=== PATIENT | female | born 1955 | race Caucasian/White ===

== ENCOUNTER 2023-09-16 20:43 | Observation (INO) ==
[2023-09-16 21:38] LABS: ABS Basophils 0.1 10^3/uL (0.0-0.1); ABS Eosinophils 0.8 10^3/uL (0.0-0.5); ABS Lymphocytes 2.2 10^3/uL (1.0-4.8); ABS Neutrophils 5.7 10^3/uL (1.5-7.6); Eosinophil % 8.3 %; Hematocrit 40.3 % (35-45); Hemoglobin 13.4 g/dL (11.5-14.3); Lymphocyte % 22.3 %; Mean Corpuscular Hemoglobin 28.9 pg (27-33); Mean Corpuscular Hgb Conc 33.2 g/dL (31-36); Mean Corpuscular Volume 86.8 fL (80-97); Mean Platelet Volume 8.7 fL (7.5-11.2); Platelet Count 258 10^3/uL (150-450); Red Blood Count 4.64 10^6/uL (3.63-4.92); Red Cell Distribution Width 14.6 % (12-17); White Blood Count 9.8 10^3/uL (3.8-11.8)
[2023-09-16 21:42] LABS: INR 0.97 (0.83-1.13)
[2023-09-16] MEDS: NS 0.9% 1000 ml BAG 1,000 ML IV ONE (22:37)
[2023-09-16 22:41] LABS: Albumin 3.6 g/dL (3.2-5.2); Albumin/Globulin Ratio 1.3 (1-3); Calcium 9.5 mg/dL (8.6-10.3); Creatinine, Serum 1.22 mg/dL (0.51-0.95); Globulin 2.7 g/dL (2-4); Potassium 4.4 mmol/L (3.5-5.0); Total Bilirubin 0.5 mg/dL (0.2-1.0); Total Protein 6.3 g/dL (6.4-8.9); eGFR CKD-EPI 47.7 (>60)
[2023-09-16 23:07] LABS: High Sensitivity Troponin 1 Hr 4 pg/mL (<15)
[2023-09-17] MEDS: Iohexol 350 (CONTRAST) 500 ML MDV IV ONE (00:43)
[2023-09-17 03:33] LABS: HDL Cholesterol 53.1 mg/dL
[2023-09-17] MEDS: Enoxaparin 40 MG/0.4 ML SYR SUBCUT SCH (05:51)
[2023-09-17 06:11] LABS: Hematocrit 36.2 % (35-45); Mean Corpuscular Hemoglobin 28.8 pg (27-33); Mean Corpuscular Hgb Conc 33.2 g/dL (31-36); Mean Corpuscular Volume 86.7 fL (80-97); Mean Platelet Volume 8.5 fL (7.5-11.2); Platelet Count 238 10^3/uL (150-450); Red Blood Count 4.18 10^6/uL (3.63-4.92); Red Cell Distribution Width 14.4 % (12-17)
[2023-09-17 06:55] LABS: Creatinine, Serum 1.09 mg/dL (0.51-0.95); Magnesium 1.7 mg/dL (1.9-2.7); Potassium 4.6 mmol/L (3.5-5.0); eGFR CKD-EPI 54.7 (>60)
[2023-09-17] MEDS ORDERED: Regadenoson 0.4 MG/5 ML SYRINGE ONE (13:35)
[2023-09-17] MEDS ORDERED: Aminophylline 25 MG/ML VIAL ONE (13:50)
[2023-09-17 17:26] VITALS: BP 125/71
== END 2023-09-17 17:50 | disposition home or self-care (01) ==
LOC: ED 20:43 → EDHOLD 20:43 → SUATTDRO 09-17 02:42 → MEDTELE 09-17 07:35
PROVIDERS: ADMIT Internal Medicine; ATTEND Student in an Organized Health Care Education/Training Program